=== PATIENT | male | born 1940 | race Caucasian/White ===

== ENCOUNTER 2022-03-04 12:35 | Outpatient (CLI) | payer MEDICARE, BC | END 2022-03-04 23:59 | disposition home or self-care (01) | LOC: CARD DIAG 12:35 | PROVIDERS: ATTEND Internal Medicine Cardiovascular Disease | DX: I08.3 Combined rheumatic disorders of mitral, aortic and tricuspid valves (principal) | CPT/HCPCS: 93306 ==

== ENCOUNTER 2025-05-01 06:13 | Day surgery (SDC) | payer MEDICARE, BC ==
[2025-04-30 14:50] LABS: MEAN PLATELET VOLUME 8.9 FL (7.4-10.4); RED CELL DISTRIBUTION WIDTH 14.8 % (11.5-14.5)
[2025-04-30 14:57] LABS: CREATININE 1.04 MG/DL (0.60-1.10); TOTAL CARBON DIOXIDE 28.4 MMOL/L (24-32); eGFR 68 ML/MIN
[2025-04-30 15:00] LABS: APTT 29 SECONDS (22-32); INR 1.1 INR
[2025-05-01] VITALS (12 sets, daily range): BP systolic 146–192; BP diastolic 71–90; PULSE 48–71; RESP 10–17; TEMP 97.5; O2SAT 94–97
[~2025-05-01] VITALS: Ht 185.4 cm; Wt 77.8 kg
[2025-05-01] MEDS ORDERED: ACET-1008 PO (06:53)
[2025-05-01] MEDS ORDERED: VALS40TA11 (06:53)
[2025-05-01] MEDS ORDERED: ROSU40TA89 PO (06:53)
[2025-05-01] MEDS ORDERED: normal saline 1000ml 1,000 ML IV ONE (06:55)
[2025-05-01] MEDS ORDERED: ceFAZolin 2gm/dext,iso 50mL 50 ML IV ONE (06:55)
--- NOTE | 2025-05-01 07:04 | ELECTROCARDIOGRAPH REPORT ---
[facility] Test Date: 2025-05-01 Test Time: 07:02:46 Pat Name: KVNG LAY Department: [facility] O Patient ID: [facility]-[id number] Room: Gender: M Mortgage Broker: : 1940 Requested By: LIV SANTIAGO Order Number: [id number] Reading MD: Dr. RICHY Santiago Measurements Intervals Lulu Rate: 60 P: 0 GA: 69 QRS: 58 QRSD: 110 T: 14 QT: 499 QTc: 499 Interpretive Statements Sinus bradycardia Atrial premature complex Short GA interval Minimal ST depression, anterolateral leads Electronically Signed On 05-01-2025 11:30:[address] RICHY Santiago Please click the below link to view image of tracing.
[2025-05-01] MEDS ORDERED: midazolam 1 mg/ML 2ml injection ONE ×2 (08:23→09:39)
[2025-05-01] MEDS ORDERED: fentaNYL/PF 50MCG/1 ML 2ML syringe ONE ×2 (08:23→10:08)
[2025-05-01] MEDS ORDERED: LIDOcaine 1% W/epiNEPHrine 1:100,000 20ml vial ONE (08:23)
[2025-05-01] MEDS ORDERED: HYDROcodone/acetaminophen 10/325mg tab PO PRN (10:35)
--- NOTE | 2025-05-01 11:14 | RADIOLOGY REPORT ---
CHEST RADIOGRAPH Indication: possible pneumo, post PPM Technique: Single frontal view of the chest was obtained COMPARISON: None FINDINGS: Lines and Tubes: Left chest pacemaker Lungs: Clear Pleura: No effusion. No pneumothorax. Cardiomediastinal contours: Unremarkable Bones: Unremarkable IMPRESSION: No acute disease.
[2025-05-01] MEDS: HYDROcodone/acetaminophen 5mg/325mg tablet PO PRN (12:05)
[2025-05-01] MEDS: vancomycin/NS 1 GM ADD-VANTAGE 250 ML IV ONE (12:50)
[2025-05-01] MEDS ORDERED: CEPH-585 PO (14:21)
--- NOTE | 2025-05-02 11:28 | CARDIOLOGY REPORT ---
DATE OF SERVICE: 05/01/2025 DICTATING PHYSICIAN: RICHY Chow MD PERMANENT PACEMAKER IMPLANTATION REPORT GENDER: Male. AGE: 84 years. HEIGHT: 135 cm. WEIGHT: 78 kg. BODY SURFACE AREA: 2.01 m2. PRIMARY PHYSICIAN: Dr. Sousa PERIOPERATIVE TECH: RICHY Chow MD INDICATION: The patient is an 84-year-old male with history of hypertension, hyperlipidemia, CAD and sick sinus syndrome, symptomatic bradycardia. 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 The patient continues to be tired, fatigued, longest pause 3.1 seconds. The patient after discussing risks, benefits, and alternative options, prefers to proceed with permanent pacemaker implantation. Risks, benefits, and alternative options were discussed. Informed consent was obtained. PREPROCEDURE DIAGNOSES: Sick sinus syndrome with symptomatic bradycardia. POSTPROCEDURE DIAGNOSES: Sick sinus syndrome with symptomatic bradycardia. PROCEDURES DONE: * Fluoroscopy. * AV sequential pacemaker implantation. * Conscious sedation of 45 minutes. DESCRIPTION OF PROCEDURE: The left infraclavicular area was prepped and draped in the usual fashion. Two separate accesses was in the subclavian vein and then it was extended with two seven Bulgarian sheaths. Through one of them, RV lead advanced to the RV apex, screwed into the RV apex. Appropriate pacing and sensory thresholds obtained. Sheath was removed by peel-away technique. Through the second right atrial sheath, right atrial lead was advanced to the right atrium. J-wire was formed, screwed into the right atrial appendage. Appropriate pacing and sensing thresholds were obtained. Sheath removed by a peel-away technique and lead anchored to the subcutaneous tissue with Ethibond. The pocket was irrigated with copious antibiotic solution. pacemaker suspended in the pacemaker pocket. Pocket closed with continuous 0 Vicryl followed by interrupted 0 Vicryl. Third layer of interrupted 2-0 Vicryl applied. Skin approximated with staple. Pressure dressing was applied. TECHNICAL INFORMATION: Device used: MRI compatible [place] pacemaker, model #W3DR01, serial #[id number], [employer], 05/01/2025, left pectoral location. RA LEAD: Model number 4076, cm long, serial number [id number], [employer], 05/01/2025, right atrial appendage, P-wave amplitude of 2.3 millivolts, 431 ohms of impedance and pacing threshold 1.5 volts at 0.4 milliseconds. RV LEAD: Model number 5076, 58 cm long, serial number [id number], [employer], 05/01/2025, . IMPRESSION: An 84-year-old male with symptomatic bradycardia, underwent successful AV sequential of pacemaker implantation. No complications. BV MD Geraldo TID: [id number] RECEIPT: [id number] MANDI/TIMOTEO/PATTY cc: Dr Sousa [facility]Jose
== END 2025-05-01 16:00 | disposition home or self-care (01) ==
LOC: SSTAY O 06:13
PROVIDERS: ATTEND Internal Medicine Cardiovascular Disease
DX: I44.1 Atrioventricular block, second degree (principal); I49.1 Atrial premature depolarization; R94.31 Abnormal electrocardiogram [ECG] [EKG]; I25.10 Atherosclerotic heart disease of native coronary artery without angina pectoris; I10 Essential (primary) hypertension; E78.5 Hyperlipidemia, unspecified; Z85.46 Personal history of malignant neoplasm of prostate; Z79.899 Other long term (current) drug therapy; Z90.79 Acquired absence of other genital organ(s); Z98.818 Other dental procedure status; Z98.890 Other specified postprocedural states; Z88.8 Allergy status to other drugs, medicaments and biological substances; Z82.49 Family history of ischemic heart disease and other diseases of the circulatory system
CPT/HCPCS: 33208; 36415; 71045; 80048; 85025; 85610; 85730; 93005; 99152; 99153; A4565; A6402; C1785; C1898; J0690; J2250; J3010; J3373; J3490; J7030; Z7610; A6449